=== PATIENT | female | born 1995 | race Hispanic/Latino ===

== ENCOUNTER 2023-06-30 15:39 | Emergency (ER) | payer SELFPAY ==
[2023-06-30] MEDS ORDERED: Ibuprofen 800 MG TAB ONE (18:06)
== END 2023-06-30 18:36 | disposition home or self-care (01) ==
LOC: ERS 15:39 → EDBD 15:39 → ERS 18:36
DX: S93.401A Sprain of unspecified ligament of right ankle, initial encounter (principal); W18.49XA Other slipping, tripping and stumbling without falling, initial encounter